=== PATIENT | female | born 1965 | race Caucasian/White ===

== ENCOUNTER 2021-07-20 22:08 | Emergency (ER) | payer OTHER ==
[2021-07-20 23:11] LABS: BASOPHIL 1.1 % (0-2); EOSINOPHIL 3.3 % (0-5); HGB 13.9 g/dl (12.5-16.0); LYMPHOCYTE 32.4 % (15-48); MCH 28.5 pg (25.0-31.0); MCHC 33.1 g/dL (32.0-36.0); MCV 86.2 fL (78.0-100.0); MONOCYTE 8.6 % (0-12); MPV 10.8 fL (6.0-9.5); NEUTROPHIL 54.2 % (41-80); NRBC 0; PLT 246 K/uL (150-400); RBC 4.87 M/uL (4.20-5.40); RDW 13.8 % (11.5-14.0); WBC 7.6 K/uL (4.0-10.5)
[2021-07-20 23:20] LABS: INR 0.89 (0.9-1.2); PROTHROMBIN TIME 11.5 SECONDS (11.8-13.4)
[2021-07-20 23:22] LABS: D-DIMER 0.31 ug/mLFEU (0.00-0.41)
[2021-07-20 23:36] LABS: ALBUMIN 3.8 g/dL (3.4-5.0); BILIRUBIN - TOTAL 0.3 mg/dL (0.2-1.0); BUN/CREAT RATIO (CALC) 15.9 RATIO; CREATININE 0.88 mg/dL (0.51-0.95); GLOBULIN (CALCULATION) 3.5 g/dL; POTASSIUM 4.4 mmol/L (3.5-5.1); TOTAL PROTEIN 7.3 g/dL (6.4-8.2)
== END 2021-07-21 00:55 | disposition home or self-care (01) ==
LOC: FER 22:08
PROVIDERS: Emergency Medicine
DX: R00.2 Palpitations (principal); Z88.5 Allergy status to narcotic agent
CPT/HCPCS: 36415; 71045; 80053; 83880; 84443; 84484; 85025; 85379; 85610; 93005